=== PATIENT | female | born 1980 | race Hispanic/Latino ===

== ENCOUNTER 2023-08-04 15:29 | Emergency (ER) | payer SELFPAY ==
[2023-08-04 16:43] LABS: SARS-CoV-2 NAA Rapid Test Not Detected (NotDetected)
[2023-08-04] MEDS ORDERED: Metoclopramide HCl 10 MG/2 ML VIAL ONE (18:03)
[2023-08-04] MEDS ORDERED: cefTRIAXone (ROCEPHIN) 1 GM VIAL ONE (18:03)
[2023-08-04] MEDS ORDERED: diphenhydrAMINE 50 MG/ML VIAL ONE (18:03)
[2023-08-04 18:15] LABS: Bilirubin Neg (Negative); Blood, Urine 250 (Negative); Glucose, Urine (Dipstick) 50 mg/dL (Negative); Ketone, Urine 50 mg/dL (Negative); Leukocyte 500 (Negative); Nitrite Negative (Negative); Protein, Urine (Dipstick) 100 mg/dl (Neg-Trace); Specific Gravity, Urine 1.015 (1.005-1.030)
[2023-08-04 18:18] LABS: Clarity Turbid (Clear)
[2023-08-04 18:19] LABS: Pregnancy Test - Urine (BHCG) POSITIVE (Negative); Pregu Control Background? CLEAR/WHITE (CLR/WHITE); Pregu Control Bar Appear? YES (CONTROL BAR); Specific Gravity 1.015 (1.002-1.036)
[2023-08-04 18:25] LABS: CAUTI Indications for Culture Fever or rigors; WBC/HPF Greater than 50 HPF (0-3)
[2023-08-04 18:26] LABS: Bacteria/HPF 2+ HPF (None Seen)
[2023-08-04 18:28] LABS: Urine Culture Reflex Yes Yes
[2023-08-04 19:54] LABS: Hematocrit 28.5 % (34.9-44.5); Hemoglobin 9.5 g/dL (12.0-15.5); Mean Corpuscular HGB CONC 33.3 g/dL (32.0-36.0); Mean Corpuscular Hemoglobin 29.8 pg (27.0-33.0); Mean Corpuscular Volume 89.3 fl (81.6-98.3); Mean Platelet Volume 9.8 fl (7.4-10.4); Platelet Count 191 10x3/uL (150-450); Red Blood Cell (RBC) Count 3.19 10x6/uL (3.90-5.03); White Blood Cell (WBC) Count 12.2 10x3/uL (3.5-10.5)
[2023-08-04 20:10] LABS: ALT (SGPT) 20 U/L (8-55); AST (SGOT) 21 U/L (5-34); Albumin 3.1 g/dL (3.5-5.0); Alkaline Phosphatase 63 U/L (40-110); Anion Gap 16 mmol/L (10-20); BUN (Urea Nitrogen) 7 mg/dL (7.0-18.7); Bilirubin, Total 0.4 mg/dL (0.2-1.2); Calc. Creatinine Clearance 0 mL/min (70-130); Calcium 7.6 mg/dL (7.8-10.44); Carbon Dioxide 16 mmol/L (22-29); Chloride 102 mmol/L (98-107); Estimated GFR 96; Globulin 3.2 g/dL (2.4-3.5); Glucose 111 mg/dL (70-105); Potassium 2.9 mmol/L (3.5-5.1); Protein, Total 6.3 g/dL (6.0-8.3); Sodium 131 mmol/L (136-145)
[2023-08-04 20:40] LABS: MDiff Complete? YES
[2023-08-04 20:43] LABS: Band 4 % (5-11); Lymphocytes 6 % (21-51); Monocytes 6 % (0-10); Neutrophil 84 % (42-75)
[2023-08-04 20:45] LABS: Platelet Adequacy Comment Appears Adequate; Polychromasia SLIGHT = 2-3 cells (100X) (0-2/hpf); Vacuoles SLIGHT
== END 2023-08-04 21:10 | disposition home or self-care (01) ==
LOC: CSHERS 15:29
DX: O23.42 Unspecified infection of urinary tract in pregnancy, second trimester (principal); N39.0 Urinary tract infection, site not specified; Z3A.17 17 weeks gestation of pregnancy
CPT/HCPCS: 36415; 71045; 76815; 80053; 81001; 81025; 83605; 84702; 85025; 87040; 87077; 87086; 87149; 87186; 96374; 96375; J0696; J1200; J2765